=== PATIENT | female | born 1965 | race Two or more races ===

== ENCOUNTER 2017-01-23 07:40 | Day surgery (SDC) | payer OTHER ==
[~2017-01-23 07:40] MED LIST: FENTANYL 250 MCG/5 ML AMP IV PRN; LACTATED RINGERS 1,000 ML IV SCH; MIDAZOLAM HCL 5 MG/5 ML VIAL IV PRN
[2017-01-23] MEDS ORDERED: IV START KIT ONE (08:05)
== END 2017-01-23 09:30 | disposition home or self-care (01) ==
LOC: SDC 07:40
PROVIDERS: ATTEND Internal Medicine Gastroenterology
PROC: 0DJD8ZZ Inspection of Lower Intestinal Tract, Via Natural or Artificial Opening Endoscopic (ICD-10-PCS; principal; 2017-01-23)
DX: Z12.11 Encounter for screening for malignant neoplasm of colon (principal); I10 Essential (primary) hypertension
CPT/HCPCS: 45378; J3010; J2250; J7120